=== PATIENT | male | born 1955 | race Caucasian/White ===

== ENCOUNTER 2021-11-18 09:43 | Emergency (ER) | payer MEDICARE, MEDICAID ==
[2021-11-18] MEDS ORDERED: Bacitracin Oint 1 GM U/D Packet TOP ONE (10:50)
[2021-11-18] MEDS ORDERED: Lidocaine 1% with EPINEPHrine 1:100,000 50 ML MDV SUBCUT ONE (10:52)
== END 2021-11-18 11:56 | disposition home or self-care (01) ==
LOC: JP.ED 09:43
DX: S01.81XA Laceration without foreign body of other part of head, initial encounter (principal); F17.210 Nicotine dependence, cigarettes, uncomplicated; W01.10XA Fall on same level from slipping, tripping and stumbling with subsequent striking against unspecified object, initial encounter
CPT/HCPCS: 12013; 99281; 99283